=== PATIENT | female | born 1975 | race Caucasian/White ===

== ENCOUNTER 2022-06-20 15:45 | Emergency (ER) | payer OTHER, SELFPAY ==
--- NOTE | ~2022-06-20 | CT_ITS ---
EXAMINATION: CT ABDOMEN AND PELVIS WITH CONTRAST CLINICAL INFORMATION: Epigastric and lower abdominal pain COMPARISON: None TECHNIQUE: Multidetector volumetric images were obtained from the superior aspect of the liver through the pubic symphysis following administration 85 mL of Omnipaque 350 intravenous contrast. Sagittal and coronal reformatted images were obtained on the technologist's workstation. Oral contrast: No This CT examination was performed using dose optimization techniques as appropriate, variously including the following: *Automated exposure control *Adjustment of mA and/or kV according to patient size (this includes techniques or standardized protocols for targeted exams where dose is matched to indication/reason for exam; i.e. extremities or head) *Use of iterative reconstruction technique DLP: 769 mGy-cm FINDINGS: LUNG BASES: The visualized lung bases are unremarkable. LIVER, GALLBLADDER, AND BILIARY TREE: The liver is normal in size, shape, and attenuation. No focal hepatic lesion or biliary ductal dilatation is present. The gallbladder is unremarkable with no evidence of radiopaque gallstones, gallbladder wall thickening, or obvious pericholecystic inflammatory changes. PANCREAS: Unremarkable. SPLEEN: Unremarkable. ADRENAL GLANDS: Unremarkable. KIDNEYS AND URETERS: The kidneys are normal in size, shape, and attenuation. No hydronephrosis, hydroureter, or calculi seen. No perinephric stranding. BLADDER: Unremarkable. GASTROINTESTINAL TRACT: The small and large bowel are unremarkable. The appendix is not seen seen with certainty but there is no evidence of appendicitis. ABDOMINAL WALL: No significant hernia is appreciated. Tiny periumbilical hernia seen containing only fat. LYMPH NODES: No retroperitoneal lymphadenopathy VASCULAR: Unremarkable. PELVIC VISCERA: The uterus and adnexa are unremarkable. OSSEOUS STRUCTURES: Unremarkable. CT/CT abdomen pelvis w IV con IMPRESSION: No significant abnormality. Fleischner guidelines were followed.
[2022-06-20 15:53] VITALS: BP 149/84; PULSE 96; RESP 18; TEMP 36.6; O2SAT 98; BMI 35.9
--- NOTE | 2022-06-20 15:53 | ED_ITS ---
HPI - Abdominal Pain General Chief Complaint: Abdominal Pain <SANDY Tariq Last Filed: 06/20/22 15:59> Stated Complaint: Abdominal pain <SANDY Tariq Last Filed: 06/20/22 15:59> Time Seen by Provider: 06/20/22 21:59 <SANDY Tariq Last Filed: 06/20/22 15:59> Source: patient <SANDY Cook Last Filed: 06/20/22 23:36> Mode of arrival: ambulatory <SANDY Cook Last Filed: 06/20/22 23:36> Limitations: no limitations <SANDY Cook Last Filed: 06/20/22 23:36> History of Present Illness HPI narrative: 46-year-old female presenting with 2 days of nausea and abdominal pain.? Patient states that she was vomiting and having diarrhea a week ago, felt better for a few days, and then started having nausea and epigastric abdominal pain again on Sunday.? Patient denies any sick contacts and household members with similar symptoms.? Patient has not had diarrhea or vomiting since last week.? Patient describes current abdominal pain as burning in her epigastric region and moving up her esophagus, worse after eating. Patient also states that she is having intermittent, dull bilateral lower back pain/flank pain, tells me it is not present at this time.? Denies history of kidney stones.? Denies headache, shortness of breath, chest pain , urinary and bowel incontinence/retention, saddle paresthesias, weakness, changes in gait, UTI symptoms <SANDY Cook Last Filed: 06/20/22 23:36> Related Data Home Medications: Previous Rx's Medication Instructions Recorded aluminum-mag hydroxide-simethicone 5 ml PO 5XD PRN dyspepsia #355 mL 06/20/22 200 mg-200 mg-20 mg/5 mL oral susp (Maalox Advanced) pantoprazole 20 mg tablet,delayed 20 mg PO DAILY #30 tabs 06/20/22 release (Protonix) <SANDY Tariq Last Filed: 06/20/22 15:59> Allergies/Adverse Reactions: Allergies Allergy/AdvReac Type Severity Reaction Status Date / Time cephalexin Allergy Unknown Rash Verified 06/20/22 15:59 <SANDY Tariq - Last Filed: 06/20/22 15:59> Review of Systems Review of Systems Constitutional : No Weight loss, No Fever, No Chills, No Fatigue, No Malaise ENT/Mouth : No sore throat, No Rhinorrhea Eyes: No Eye Pain, No Swelling, No Redness Cardiovascular : No Chest Pain, No SOB, No Dyspnea on Exertion, No Orthopnea, No Edema, No Palpitations Respiratory : No Cough, No Sputum, No Wheezing Gastrointestinal : No Nausea, No Vomiting, No Diarrhea, No Constipation, + abdominal Pain, No Hematochezia, No Melena Genitourinary : No Dysuria, No Urinary Frequency, No Hematuria, Musculoskeletal : No joint pain, No Myalgias, No Joint Swelling, + b/l flank pain Skin : No Skin Lesions, No rash Neuro : No Weakness, No Numbness, No Dizziness, No Headache Psych : No Anxiety/Panic, No Depression All other systems reviewed and are negative? Yes all other systems are reviewed and are negative <SANDY Cook - Last Filed: 06/20/22 23:36> Yes all other systems are reviewed and are negative <SANDY Cook - Last Filed: 06/20/22 23:36> [facility] Past Medical History Attestation statement: The following information was validated with the patient. <SANDY Cook - Last Filed: 06/20/22 23:36> Source: old records reviewed and nursing notes reviewed <SANDY Cook - Last Filed: 06/20/22 23:36> Social History Social History: Social History Advance Directives: No Advance Directives Information Provided: No <SANDY Tariq Last Filed: 06/20/22 15:59> Physical Exam ED Vital Signs: Vital Signs - 24 hr 06/20/22 15:53 06/20/22 22:26 Temperature 97.8 F Pulse Rate 96 69 Respiratory Rate 18 18 Blood Pressure 149/84 H 144/90 H Pulse Oximetry 98 100 Oxygen Delivery Method Room Air Room Air BMI result Body Mass Index 35.9 <SANDY Tariq - Last Filed: 06/20/22 15:59> Vital Signs - 24 hr 06/20/22 15:53 06/20/22 22:26 Temperature 97.8 F Pulse Rate 96 69 Respiratory Rate 18 18 Blood Pressure 149/84 H 144/90 H Pulse Oximetry 98 100 Oxygen Delivery Method Room Air Room Air BMI result Body Mass Index 35.9 vss <SANDY Cook - Last Filed: 06/20/22 23:36> Appearance: Alert.? Oriented X3.? No acute distress.? Head:? Normocephalic, atraumatic, no step-offs or deformities Eyes: Pupils equal, round and reactive to light.? CVS: Normal heart rate and rhythm.? Pulses normal.? Respiratory: No respiratory distress.? Breath sounds normal.? Abdomen: Soft and mild tenderness epigastric region.? Skin: Skin warm and dry.? Normal skin color.? Normal skin turgor.? Extremities: No lower extremity edema.? No calf ttp.? 5/5 strength to bilateral upper and lower extremities Back:? No midline tenderness, no C-spine tenderness, full range of motion, no CVA tenderness bilaterally Neuro: Oriented X 3.? No motor deficit.? No sensory deficit. CN 2-12 intact no saddle paresthesias.? Ambulating with steady gait with normal coordination. <SNADY Cook - Last Filed: 06/20/22 23:36> Course Course Course Narrative: RME--46yo F w/no sig PMHx c/o periumbilical abdominal pain and nausea x1 week. Admits last week had GI bug with N/V/D which has since improved. Abd soft with periumbilical ttp, no CVAT, no rebound or guarding Labs, UA, preg ordered <SANDY Tariq Last Filed: 06/20/22 15:59> Reevaluation(s) Reevaluation #1: Patient's CBC appears to be within normal limits.? Chemistry with no acute electrolyte abnormalities requiring intervention.? Lipase within normal limits.? UA without infection.? Urine negative.? Influenza negative.? CT of the abdomen and pelvis with no acute findings. <SANDY Cook Last Filed: 06/20/22 23:36> Time: 23: <SANDY Cook - Last Filed: 06/20/22 23:36> Reevaluation #2: Patient tells me that she is feeling better at this time, pain-free.? She tells me she is feeling hungry.? Will give a GI cocktail prior to patient's discharge.? Patient is tolerating p.o..? Will give her referral to GI.? Educated patient on diagnosis and treatment plan, answered all question, patient verbalizes understanding.? At this time patient will be discharged home, advised to return with new or worsening symptoms.? Educated on worrisome signs and symptoms and when to return.? At this time I feel comfortable discharge home. <SANDY Cook - Last Filed: 06/20/22 23:36> Time: 23:36 <SANDY Cook - Last Filed: 06/20/22 23:36> Medical Decision Making Medical Decision Making MDM Narrative: 46-year-old female presents with epigastric pain that feels like a burning sensation x2 days.? Previous to this she had nausea, vomiting and diarrhea.? Also reporting bilateral flank discomfort that is intermittent in nature however not present at this time Physical exam with mild epigastric tenderness.? Patient appears comfortable no acute distress.? Vital signs are stable. Likely viral in origin however other differentials include gastritis/GERD.? Unlikely appendicitis, cholecystitis, diverticulitis, pancreatitis or acute abdomen.? Will rule out UTI and cystitis. Plan at this time basic labs, imaging, urine <SANDY Cook - Last Filed: 06/20/22 23:36> Differential Diagnosis Differential Diagnoses: The differential diagnosis associated with the presentation includes <SANDY Cook - Last Filed: 06/20/22 23:36> Likely viral in origin however other differentials include gastritis/GERD.? Unlikely appendicitis, cholecystitis, diverticulitis, pancreatitis or acute abdomen.? Will rule out UTI and cystitis. <SANDY Cook Last Filed: 06/20/22 23:36> Admission/Observation Consideration of admission/observation: Escalation of care including admission/observation considered <SANDY Cook Last Filed: 06/20/22 23:36> Lab Data Result Diagrams: 06/20/22 16:05 06/20/22 16:05 <SANDY Tariq - Last Filed: 06/20/22 15:59> Labs: Lab Results 06/20/22 06/20/22 06/20/22 Range/Units 16:05 16:05 16:36 WBC 7.0 (4.8-10.8) X10*3/uL RBC 4.80 (4.20-5.50) X10*6/uL Hgb 14.4 (12.0-16.0) g/dl Hct 41.6 (37.0-47.0) % MCV 86.7 (80.0-98.0) fL MCH 30.0 (27.0-33.0) pg MCHC 34.6 (31.0-35.0) g/dl RDW 11.9 (11.0-16.0) % Plt Count 313 (160-400) X10*3/uL MPV 8.6 L (9.4-12.3) fL Immature Gran % (Auto) 0.4 (0.0-0.4) % Neut % (Auto) 64.1 (45-73) % Lymph % (Auto) 26.8 (20-40) % Stafford % (Auto) 6.3 (2-11) % Eos % (Auto) 1.7 (0-4) % Baso % (Auto) 0.7 (0-2) % Lymph # (Auto) 1.9 (1.2-4.9) X10*3/uL [place] # (Auto) 0.4 (0.1-1.2) X10*3/uL Eos # (Auto) 0.1 (0.0-0.4) X10*3/uL Baso # (Auto) 0.1 (0.0-0.2) X10*3/uL Abs Immat Gran (auto) 0.03 (0.00-0.03) X10*3/uL Absolute Neuts (auto) 4.5 (2.0-8.3) x10*3/uL Absolute Nucleated RBC 0.000 (0.0-0.012) X10*3/uL Nucleated RBC % (auto) 0.0 (0.0-0.2) /100WBC Sodium 138 (135-145) mmol/L Potassium 3.8 (3.3-5.1) mmol/L Chloride 102 (96-108) mmol/L Carbon Dioxide 26 (22-29) mmol/L Anion Gap 14 (12-20) BUN 10 (9-16) mg/dL Creatinine 0.71 (0.5-1.4) mg/dL Estim Creat Clear Calc 120.1 Estimated GFR > 60 Random Glucose 87 (60-115) mg/dL Calcium 9.4 (8.4-10.2) mg/dL Magnesium 2.0 (1.6-2.6) mg/dL Total Bilirubin 0.8 (0.0-1.0) mg/dL Direct Bilirubin 0.2 (0.0-0.5) mg/dL AST 28 (5-31) U/L ALT 33 H (0-31) U/L Alkaline Phosphatase 90 (39-117) U/L Total Protein 7.6 (6.5-8.0) g/dL Albumin 4.6 (3.5-5.0) g/dL Lipase 28 (8-78) U/L Urine Color Yellow Urine Appearance Clear Urine pH 6.5 (5.0-9.0) Ur Specific [place] 1.010 (1.005-1.025) Urine Protein Negative (Neg-Trace) mg/dL Urine Glucose (UA) Negative (Negative) mg/dL Urine Ketones Trace (Negative) mg/dL Urine Blood Negative (Negative) Urine Nitrite Negative (Negative) Ur Leukocyte Esterase Negative (Negative) Urine Test (NEGATIVE) COVID-19 (QI) (Negative) COVID-19 Clin Com Influenza Type A (NGUYỄN) (Negative) Influenza Type B (NGUYỄN) (Negative) Influenza A & B Note 06/20/22 06/20/22 06/20/22 Range/Units 16:36 22:13 22:13 WBC (4.8-10.8) X10*3/uL RBC (4.20-5.50) X10*6/uL Hgb (12.0-16.0) g/dl Hct (37.0-47.0) % MCV (80.0-98.0) fL MCH (27.0-33.0) pg MCHC (31.0-35.0) g/dl RDW (11.0-16.0) % Plt Count (160-400) X10*3/uL MPV (9.4-12.3) fL Immature Gran % (Auto) (0.0-0.4) % Neut % (Auto) (45-73) % Lymph % (Auto) (20-40) % [place] % (Auto) (2-11) % Eos % (Auto) (0-4) % Baso % (Auto) (0-2) % Lymph # (Auto) (1.2-4.9) X10*3/uL [place] # (Auto) (0.1-1.2) X10*3/uL Eos # (Auto) (0.0-0.4) X10*3/uL Baso # (Auto) (0.0-0.2) X10*3/uL Abs Immat Gran (auto) (0.00-0.03) X10*3/uL Absolute Neuts (auto) (2.0-8.3) x10*3/uL Absolute Nucleated RBC (0.0-0.012) X10*3/uL Nucleated RBC % (auto) (0.0-0.2) /100WBC Sodium (135-145) mmol/L Potassium (3.3-5.1) mmol/L Chloride (96-108) mmol/L Carbon Dioxide (22-29) mmol/L Anion Gap (12-20) BUN (9-16) mg/dL Creatinine (0.5-1.4) mg/dL Estim Creat Clear Calc Estimated GFR Random Glucose (60-115) mg/dL Calcium (8.4-10.2) mg/dL Magnesium (1.6-2.6) mg/dL Total Bilirubin (0.0-1.0) mg/dL Direct Bilirubin (0.0-0.5) mg/dL AST (5-31) U/L ALT (0-31) U/L Alkaline Phosphatase (39-117) U/L Total Protein (6.5-8.0) g/dL Albumin (3.5-5.0) g/dL Lipase (8-78) U/L Urine Color Urine Appearance Urine pH (5.0-9.0) Ur Specific [place] (1.005-1.025) Urine Protein (Neg-Trace) mg/dL Urine Glucose (UA) (Negative) mg/dL Urine Ketones (Negative) mg/dL Urine Blood (Negative) Urine Nitrite (Negative) Ur Leukocyte Esterase (Negative) Urine Test NEGATIVE (NEGATIVE) COVID-19 (QI) Negative (Negative) COVID-19 Clin Com See Note Influenza Type A (NGUYỄN) Negative (Negative) Influenza Type B (NGUYỄN) Negative (Negative) Influenza A & B Note See Note <SANDY Tariq - Last Filed: 06/20/22 15:59> Lab Results 06/20/22 06/20/22 06/20/22 Range/Units 16:05 16:05 16:36 WBC 7.0 (4.8-10.8) X10*3/uL RBC 4.80 (4.20-5.50) X10*6/uL Hgb 14.4 (12.0-16.0) g/dl Hct 41.6 (37.0-47.0) % MCV 86.7 (80.0-98.0) fL MCH 30.0 (27.0-33.0) pg MCHC 34.6 (31.0-35.0) g/dl RDW 11.9 (11.0-16.0) % Plt Count 313 (160-400) X10*3/uL MPV 8.6 L (9.4-12.3) fL Immature Gran % (Auto) 0.4 (0.0-0.4) % Neut % (Auto) 64.1 (45-73) % Lymph % (Auto) 26.8 (20-40) % Stafford % (Auto) 6.3 (2-11) % Eos % (Auto) 1.7 (0-4) % Baso % (Auto) 0.7 (0-2) % Lymph # (Auto) 1.9 (1.2-4.9) X10*3/uL [place] # (Auto) 0.4 (0.1-1.2) X10*3/uL Eos # (Auto) 0.1 (0.0-0.4) X10*3/uL Baso # (Auto) 0.1 (0.0-0.2) X10*3/uL Abs Immat Gran (auto) 0.03 (0.00-0.03) X10*3/uL Absolute Neuts (auto) 4.5 (2.0-8.3) x10*3/uL Absolute Nucleated RBC 0.000 (0.0-0.012) X10*3/uL Nucleated RBC % (auto) 0.0 (0.0-0.2) /100WBC Sodium 138 (135-145) mmol/L Potassium 3.8 (3.3-5.1) mmol/L Chloride 102 (96-108) mmol/L Carbon Dioxide 26 (22-29) mmol/L Anion Gap 14 (12-20) BUN 10 (9-16) mg/dL Creatinine 0.71 (0.5-1.4) mg/dL Estim Creat Clear Calc 120.1 Estimated GFR > 60 Random Glucose 87 (60-115) mg/dL Calcium 9.4 (8.4-10.2) mg/dL Magnesium 2.0 (1.6-2.6) mg/dL Total Bilirubin 0.8 (0.0-1.0) mg/dL Direct Bilirubin 0.2 (0.0-0.5) mg/dL AST 28 (5-31) U/L ALT 33 H (0-31) U/L Alkaline Phosphatase 90 (39-117) U/L Total Protein 7.6 (6.5-8.0) g/dL Albumin 4.6 (3.5-5.0) g/dL Lipase 28 (8-78) U/L Urine Color Yellow Urine Appearance Clear Urine pH 6.5 (5.0-9.0) Ur Specific [place] 1.010 (1.005-1.025) Urine Protein Negative (Neg-Trace) mg/dL Urine Glucose (UA) Negative (Negative) mg/dL Urine Ketones Trace (Negative) mg/dL Urine Blood Negative (Negative) Urine Nitrite Negative (Negative) Ur Leukocyte Esterase Negative (Negative) Urine Test (NEGATIVE) COVID-19 (QI) (Negative) COVID-19 Clin Com Influenza Type A (NGUYỄN) (Negative) Influenza Type B (NGUYỄN) (Negative) Influenza A & B Note 06/20/22 06/20/22 06/20/22 Range/Units 16:36 22:13 22:13 WBC (4.8-10.8) X10*3/uL RBC (4.20-5.50) X10*6/uL Hgb (12.0-16.0) g/dl Hct (37.0-47.0) % MCV (80.0-98.0) fL MCH (27.0-33.0) pg MCHC (31.0-35.0) g/dl RDW (11.0-16.0) % Plt Count (160-400) X10*3/uL MPV (9.4-12.3) fL Immature Gran % (Auto) (0.0-0.4) % Neut % (Auto) (45-73) % Lymph % (Auto) (20-40) % [place] % (Auto) (2-11) % Eos % (Auto) (0-4) % Baso % (Auto) (0-2) % Lymph # (Auto) (1.2-4.9) X10*3/uL [place] # (Auto) (0.1-1.2) X10*3/uL Eos # (Auto) (0.0-0.4) X10*3/uL Baso # (Auto) (0.0-0.2) X10*3/uL Abs Immat Gran (auto) (0.00-0.03) X10*3/uL Absolute Neuts (auto) (2.0-8.3) x10*3/uL Absolute Nucleated RBC (0.0-0.012) X10*3/uL Nucleated RBC % (auto) (0.0-0.2) /100WBC Sodium (135-145) mmol/L Potassium (3.3-5.1) mmol/L Chloride (96-108) mmol/L Carbon Dioxide (22-29) mmol/L Anion Gap (12-20) BUN (9-16) mg/dL Creatinine (0.5-1.4) mg/dL Estim Creat Clear Calc Estimated GFR Random Glucose (60-115) mg/dL Calcium (8.4-10.2) mg/dL Magnesium (1.6-2.6) mg/dL Total Bilirubin (0.0-1.0) mg/dL Direct Bilirubin (0.0-0.5) mg/dL AST (5-31) U/L ALT (0-31) U/L Alkaline Phosphatase (39-117) U/L Total Protein (6.5-8.0) g/dL Albumin (3.5-5.0) g/dL Lipase (8-78) U/L Urine Color Urine Appearance Urine pH (5.0-9.0) Ur Specific [place] (1.005-1.025) Urine Protein (Neg-Trace) mg/dL Urine Glucose (UA) (Negative) mg/dL Urine Ketones (Negative) mg/dL Urine Blood (Negative) Urine Nitrite (Negative) Ur Leukocyte Esterase (Negative) Urine Test NEGATIVE (NEGATIVE) COVID-19 (QI) Negative (Negative) COVID-19 Clin Com See Note Influenza Type A (NGUYỄN) Negative (Negative) Influenza Type B (NGUYỄN) Negative (Negative) Influenza A & B Note See Note <SANDY Cook - Last Filed: 06/20/22 23:36> Core Measures AMI core measures followed: Yes <SANDY Cook - Last Filed: 06/20/22 23:36> Measure exclusions: not indicated <SANDY Cook - Last Filed: 06/20/22 23:36> Medications Administered Discontinued Medications Generic Name Dose Route Start Last Admin Trade Name Freq PRN Reason Stop Dose Admin Iohexol 100 ml 06/20/22 22:34 06/20/22 22:35 Iohexol 350 Mg/Ml 100 Ml Infus..Btl IV 06/20/22 22:35 85 ml ONCE ONE Administration <SANDY Tariq - Last Filed: 06/20/22 15:59> Medications Administered Discontinued Medications Generic Name Dose Route Start Last Admin Trade Name Freq PRN Reason Stop Dose Admin Iohexol 100 ml 06/20/22 22:34 06/20/22 22:35 Iohexol 350 Mg/Ml 100 Ml Infus..Btl IV 06/20/22 22:35 85 ml ONCE ONE Administration <SANDY Cook - Last Filed: 06/20/22 23:36> Critical Care Time Critical Care Time Critical Care Time: No <SANDY Cook - Last Filed: 06/20/22 23:36> Discharge Plan Discharge Clinical Impression: Gastroesophageal reflux disease, Viral illness <SANDY Tariq - Last Filed: 06/20/22 15:59> Patient Disposition: Home, Self-Care <SANDY Tariq - Last Filed: 06/20/22 15:59> Instructions: Diet for Stomach Ulcers and Gastritis (ED), Gastroesophageal Reflux Dis ease (ED), Viral Syndrome (ED) <SANDY Tariq - Last Filed: 06/20/22 15:59> Additional Instructions: Take your medications as prescribed. If you were prescribed antibiotics today, it is important that you take your medication to their entirety, do not skip any doses, do not finish them early. Follow-up with your primary care provider this week. Follow-up with gastroenterology in a week or 2 Return to the emergency department with new or worsening symptoms. Such as fevers, chills, chest pain, shortness of breath, nausea, vomiting, dizziness, headache, vision changes, lethargy In case of emergency call 911 Follow a bland diet, read handouts provided Feel better! CT/CT abdomen pelvis w IV con IMPRESSION: No significant abnormality. ? Fleischner guidelines were followed. <SANDY Tariq - Last Filed: 06/20/22 15:59> Prescriptions: New pantoprazole [Protonix] 20 mg tablet,delayed release (DR/EC) 20 mg PO DAILY Qty: 30 0RF alum-mag hydroxide-simeth [Maalox Advanced] 200-200-20 mg/5 mL suspension 5 ml PO 5XD PRN (Reason: dyspepsia) Qty: 355 0RF Rx Instructions: administer between meals and at bedtime <SANDY Tariq - Last Filed: 06/20/22 15:59> Referrals: [facility] [place]Provider Group] Physician,Unknown J [Primary Care Provider] - 2 days <SANDY Tariq - Last Filed: 06/20/22 15:59> Stand Alone Forms: Work/School Release <SANDY Tariq Last Filed: 06/20/22 15:59>
[2022-06-20 16:10] LABS: MANUAL DIFF FLAG NO
[2022-06-20 16:19] LABS: Basophils Absolute Auto 0.1 X10*3/uL (0.0-0.2); Basophils Percent Auto 0.7 % (0-2); Eosinophils Absolute Auto 0.1 X10*3/uL (0.0-0.4); Eosinophils Percent Auto 1.7 % (0-4); Hematocrit 41.6 % (37.0-47.0); Hemoglobin 14.4 g/dl (12.0-16.0); Imm Gran Abs Auto 0.03 X10*3/uL (0.00-0.03); Imm Gran Pct Auto 0.4 % (0.0-0.4); Lymphocytes Absolute Auto 1.9 X10*3/uL (1.2-4.9); Lymphocytes Percent Auto 26.8 % (20-40); Mean Corpuscular HGB Conc 34.6 g/dl (31.0-35.0); Mean Corpuscular Volume 86.7 fL (80.0-98.0); Mean Platelet Volume 8.6 fL (9.4-12.3); Monocytes Absolute Auto 0.4 X10*3/uL (0.1-1.2); Monocytes Percent Auto 6.3 % (2-11); Neutrophils Absolute Auto 4.5 x10*3/uL (2.0-8.3); Neutrophils Percent Auto 64.1 % (45-73); Platelet Count 313 X10*3/uL (160-400); Red Cell Distribution Width 11.9 % (11.0-16.0)
[2022-06-20 16:45] LABS: Alanine Aminotransferase 33 U/L (0-31); Albumin Level 4.6 g/dL (3.5-5.0); Alkaline Phosphatase 90 U/L (39-117); Anion Gap 14 (12-20); Aspartate Amino Transferase 28 U/L (5-31); Bilirubin Direct 0.2 mg/dL (0.0-0.5); Bilirubin Total 0.8 mg/dL (0.0-1.0); Blood Urea Nitrogen 10 mg/dL (9-16); Calcium 9.4 mg/dL (8.4-10.2); Carbon Dioxide 26 mmol/L (22-29); Chloride 102 mmol/L (96-108); Creatinine Clr Calc Pharmacy 120.1; Estimated Glomerular Filt Rate > 60; Glucose Random 87 mg/dL (60-115); Lipase 28 U/L (8-78); Potassium 3.8 mmol/L (3.3-5.1); Sodium 138 mmol/L (135-145); Total Protein 7.6 g/dL (6.5-8.0)
[2022-06-20 16:49] LABS: Appearance Urine Clear; Color Urine Yellow; Glucose Urine UA Negative (Negative); Leukocyte Esterase Urine Negative (Negative); Nitrite Urine Negative (Negative); PH 6.5 (5.0-9.0); Urine Blood Negative (Negative); Urine Ketones Trace mg/dL (Negative); Urine Protein Negative (Neg-Trace)
[2022-06-20 16:50] LABS: UPreg QC Valid YES; Urine Pregnancy NEGATIVE (NEGATIVE)
--- NOTE | 2022-06-20 22:06 | ED.GENADULT ---
HPI - General Adult General Chief complaint: Abdominal Pain Stated complaint: Abdominal pain Time Seen by Provider: 06/20/22 21:59 Source: patient Mode of arrival: ambulatory Limitations: no limitations History of Present Illness HPI narrative: 46-year-old female presenting with 2 days of nausea and abdominal pain. Patient states that she was vomiting and having diarrhea a week ago, felt better for a few days, and then started having nausea and epigastric abdominal pain again on Sunday. Patient denies any sick contacts and household members with similar symptoms. Patient has not had diarrhea or vomiting since last week. Patient describes current abdominal pain as burning in her epigastric region and moving up her esophagus, worse after eating. Patient also states that she is having intermittent, dull bilateral lower back pain/flank pain, tells me it is not present at this time. Denies history of kidney stones. Denies headache, shortness of breath, chest pain , urinary and bowel incontinence/retention, saddle paresthesias, weakness, changes in gait, UTI symptoms Related Data Previous Rx's Medication Instructions Recorded aluminum-mag hydroxide-simethicone 5 ml PO 5XD PRN dyspepsia #355 mL 06/20/22 200 mg-200 mg-20 mg/5 mL oral susp (Maalox Advanced) pantoprazole 20 mg tablet,delayed 20 mg PO DAILY #30 tabs 06/20/22 release (Protonix) Allergies Allergy/AdvReac Type Severity Reaction Status Date / Time cephalexin Allergy Unknown Rash Verified 06/20/22 15:59 Review of Systems Review of Systems: Constitutional : No Weight loss, No Fever, No Chills, No Fatigue, No Malaise ENT/Mouth : No sore throat, No Rhinorrhea Eyes: No Eye Pain, No Swelling, No Redness Cardiovascular : No Chest Pain, No SOB, No Dyspnea on Exertion, No Orthopnea, No Edema, No Palpitations Respiratory : No Cough, No Sputum, No Wheezing Gastrointestinal : No Nausea, No Vomiting, No Diarrhea, No Constipation, + abdominal Pain, No Hematochezia, No Melena Genitourinary : No Dysuria, No Urinary Frequency, No Hematuria, Musculoskeletal : No joint pain, No Myalgias, No Joint Swelling, + b/l flank pain Skin : No Skin Lesions, No rash Neuro : No Weakness, No Numbness, No Dizziness, No Headache Psych : No Anxiety/Panic, No Depression All other systems reviewed and are negative Yes all other systems are reviewed and are negative [facility] Past Medical History Attestation statement: The following information was validated with the patient. Source: old records reviewed and nursing notes reviewed Social History Social History Advance Directives: No Advance Directives Information Provided: No Physical Exam ED Vital Signs: Vital Signs - 24 hr 06/20/22 15:53 06/20/22 22:26 Temperature 97.8 F Pulse Rate 96 69 Respiratory Rate 18 18 Blood Pressure 149/84 H 144/90 H Pulse Oximetry 98 100 Oxygen Delivery Method Room Air Room Air BMI result Body Mass Index 35.9 vss Appearance: Alert.? Oriented X3.? No acute distress.? Head: Normocephalic, atraumatic, no step-offs or deformities Eyes: Pupils equal, round and reactive to light.? CVS: Normal heart rate and rhythm.? Pulses normal.? Respiratory: No respiratory distress.? Breath sounds normal.? Abdomen: Soft and mild tenderness epigastric region.? Skin: Skin warm and dry.? Normal skin color.? Normal skin turgor.? Extremities: No lower extremity edema.? No calf ttp. 5/5 strength to bilateral upper and lower extremities Back: No midline tenderness, no C-spine tenderness, full range of motion, no CVA tenderness bilaterally Neuro: Oriented X 3.? No motor deficit.? No sensory deficit. CN 2-12 intact no saddle paresthesias. Ambulating with steady gait with normal coordination. Course Reevaluation(s) Reevaluation #1: Patient's CBC appears to be within normal limits. Chemistry with no acute electrolyte abnormalities requiring intervention. Lipase within normal limits. UA without infection. Urine negative. Influenza negative. CT of the abdomen and pelvis with no acute findings. Time: 23:27 Reevaluation #2: Patient tells me that she is feeling better at this time, pain-free. She tells me she is feeling hungry. Will give a GI cocktail prior to patient's discharge. Patient is tolerating p.o.. Will give her referral to GI. Educated patient on diagnosis and treatment plan, answered all question, patient verbalizes understanding. At this time patient will be discharged home, advised to return with new or worsening symptoms. Educated on worrisome signs and symptoms and when to return. At this time I feel comfortable discharge home. Time: 23:28 Medications Administered Discontinued Medications Generic Name Dose Route Start Last Admin Trade Name Xi PRN Reason Stop Dose Admin Iohexol 100 ml 06/20/22 22:34 06/20/22 22:35 Iohexol 350 Mg/Ml 100 Ml Infus..Btl IV 06/20/22 22:35 85 ml ONCE ONE Administration Medical Decision Making Medical Decision Making [facility] Narrative: 46-year-old female presents with epigastric pain that feels like a burning sensation x2 days. Previous to this she had nausea, vomiting and diarrhea. Also reporting bilateral flank discomfort that is intermittent in nature however not present at this time Physical exam with mild epigastric tenderness. Patient appears comfortable no acute distress. Vital signs are stable. Likely viral in origin however other differentials include gastritis/GERD. Unlikely appendicitis, cholecystitis, diverticulitis, pancreatitis or acute abdomen. Will rule out UTI and cystitis. Plan at this time basic labs, imaging, urine Differential Diagnosis Differential Diagnoses: The differential diagnosis associated with the presentation includes Likely viral in origin however other differentials include gastritis/GERD. Unlikely appendicitis, cholecystitis, diverticulitis, pancreatitis or acute abdomen. Will rule out UTI and cystitis. Admission/Observation Consideration of admission/observation: Escalation of care including admission/observation considered Unlikely Lab Data [facility] Lab Attestation statement: I reviewed the patient's lab results. 06/20/22 16:05 06/20/22 16:05 Labs: Lab Results 06/20/22 06/20/22 06/20/22 Range/Units 16:05 16:05 16:36 WBC 7.0 (4.8-10.8) X10*3/uL RBC 4.80 (4.20-5.50) X10*6/uL Hgb 14.4 (12.0-16.0) g/dl Hct 41.6 (37.0-47.0) % MCV 86.7 (80.0-98.0) fL MCH 30.0 (27.0-33.0) pg MCHC 34.6 (31.0-35.0) g/dl RDW 11.9 (11.0-16.0) % Plt Count 313 (160-400) X10*3/uL MPV 8.6 L (9.4-12.3) fL Immature Gran % (Auto) 0.4 (0.0-0.4) % Neut % (Auto) 64.1 (45-73) % Lymph % (Auto) 26.8 (20-40) % [place] % (Auto) 6.3 (2-11) % Eos % (Auto) 1.7 (0-4) % Baso % (Auto) 0.7 (0-2) % Lymph # (Auto) 1.9 (1.2-4.9) X10*3/uL [place] # (Auto) 0.4 (0.1-1.2) X10*3/uL Eos # (Auto) 0.1 (0.0-0.4) X10*3/uL Baso # (Auto) 0.1 (0.0-0.2) X10*3/uL Abs Immat Gran (auto) 0.03 (0.00-0.03) X10*3/uL Absolute Neuts (auto) 4.5 (2.0-8.3) x10*3/uL Absolute Nucleated RBC 0.000 (0.0-0.012) X10*3/uL Nucleated RBC % (auto) 0.0 (0.0-0.2) /100WBC Sodium 138 (135-145) mmol/L Potassium 3.8 (3.3-5.1) mmol/L Chloride 102 (96-108) mmol/L Carbon Dioxide 26 (22-29) mmol/L Anion Gap 14 (12-20) BUN 10 (9-16) mg/dL Creatinine 0.71 (0.5-1.4) mg/dL Estim Creat Clear Calc 120.1 Estimated GFR > 60 Random Glucose 87 (60-115) mg/dL Calcium 9.4 (8.4-10.2) mg/dL Magnesium 2.0 (1.6-2.6) mg/dL Total Bilirubin 0.8 (0.0-1.0) mg/dL Direct Bilirubin 0.2 (0.0-0.5) mg/dL AST 28 (5-31) U/L ALT 33 H (0-31) U/L Alkaline Phosphatase 90 (39-117) U/L Total Protein 7.6 (6.5-8.0) g/dL Albumin 4.6 (3.5-5.0) g/dL Lipase 28 (8-78) U/L Urine Color Yellow Urine Appearance Clear Urine pH 6.5 (5.0-9.0) Ur Specific [place] 1.010 (1.005-1.025) Urine Protein Negative (Neg-Trace) mg/dL Urine Glucose (UA) Negative (Negative) mg/dL Urine Ketones Trace (Negative) mg/dL Urine Blood Negative (Negative) Urine Nitrite Negative (Negative) Ur Leukocyte Esterase Negative (Negative) Urine Test (NEGATIVE) Influenza Type A (NGUYỄN) (Negative) Influenza Type B (NGUYỄN) (Negative) Influenza A & B Note 06/20/22 06/20/22 Range/Units 16:36 22:13 WBC (4.8-10.8) X10*3/uL RBC (4.20-5.50) X10*6/uL Hgb (12.0-16.0) g/dl Hct (37.0-47.0) % MCV (80.0-98.0) fL MCH (27.0-33.0) pg MCHC (31.0-35.0) g/dl RDW (11.0-16.0) % Plt Count (160-400) X10*3/uL MPV (9.4-12.3) fL Immature Gran % (Auto) (0.0-0.4) % Neut % (Auto) (45-73) % Lymph % (Auto) (20-40) % [place] % (Auto) (2-11) % Eos % (Auto) (0-4) % Baso % (Auto) (0-2) % Lymph # (Auto) (1.2-4.9) X10*3/uL [place] # (Auto) (0.1-1.2) X10*3/uL Eos # (Auto) (0.0-0.4) X10*3/uL Baso # (Auto) (0.0-0.2) X10*3/uL Abs Immat Gran (auto) (0.00-0.03) X10*3/uL Absolute Neuts (auto) (2.0-8.3) x10*3/uL Absolute Nucleated RBC (0.0-0.012) X10*3/uL Nucleated RBC % (auto) (0.0-0.2) /100WBC Sodium (135-145) mmol/L Potassium (3.3-5.1) mmol/L Chloride (96-108) mmol/L Carbon Dioxide (22-29) mmol/L Anion Gap (12-20) BUN (9-16) mg/dL Creatinine (0.5-1.4) mg/dL Estim Creat Clear Calc Estimated GFR Random Glucose (60-115) mg/dL Calcium (8.4-10.2) mg/dL Magnesium (1.6-2.6) mg/dL Total Bilirubin (0.0-1.0) mg/dL Direct Bilirubin (0.0-0.5) mg/dL AST (5-31) U/L ALT (0-31) U/L Alkaline Phosphatase (39-117) U/L Total Protein (6.5-8.0) g/dL Albumin (3.5-5.0) g/dL Lipase (8-78) U/L Urine Color Urine Appearance Urine pH (5.0-9.0) Ur Specific [place] (1.005-1.025) Urine Protein (Neg-Trace) mg/dL Urine Glucose (UA) (Negative) mg/dL Urine Ketones (Negative) mg/dL Urine Blood (Negative) Urine Nitrite (Negative) Ur Leukocyte Esterase (Negative) Urine Test NEGATIVE (NEGATIVE) Influenza Type A (NGUYỄN) Negative (Negative) Influenza Type B (NGUYỄN) Negative (Negative) Influenza A & B Note See Note Independent Interpretation I performed an independent interpretation of an: CT Scan (CT/CT abdomen pelvis w IV con IMPRESSION: No significant abnormality. Fleischner guidelines were followed.) Radiology Impression Discussion of test interpretation with radiology: I have reviewed the radiologist's reading. Core Measures AMI core measures followed: Yes Measure exclusions: not indicated Critical Care Time Critical Care Time Critical Care Time: No Discharge Plan Discharge Clinical Impression: Gastroesophageal reflux disease, Viral illness Patient Disposition: Home, Self-Care Instructions: Diet for Stomach Ulcers and Gastritis (ED), Gastroesophageal Reflux Disease (ED), Viral Syndrome (ED) Additional Instructions: Take your medications as prescribed. If you were prescribed antibiotics today, it is important that you take your medication to their entirety, do not skip any doses, do not finish them early. Follow-up with your primary care provider this week. Follow-up with gastroenterology in a week or 2 Return to the emergency department with new or worsening symptoms. Such as fevers, chills, chest pain, shortness of breath, nausea, vomiting, dizziness, headache, vision changes, lethargy In case of emergency call 911 Follow a bland diet, read handouts provided Feel better! CT/CT abdomen pelvis w IV con IMPRESSION: No significant abnormality. ? Fleischner guidelines were followed. Prescriptions: New pantoprazole [Protonix] 20 mg tablet,delayed release (DR/EC) 20 mg PO DAILY Qty: 30 0RF alum-mag hydroxide-simeth [Maalox Advanced] 200-200-20 mg/5 mL suspension 5 ml PO 5XD PRN (Reason: dyspepsia) Qty: 355 0RF Rx Instructions: administer between meals and at bedtime Referrals: [facility] [Provider Group] Physician,Unknown J [Primary Care Provider] - 2 days Stand Alone Forms: Work/School Release
[2022-06-20 22:26] VITALS: BP 144/90; PULSE 69; RESP 18; O2SAT 100
[2022-06-20] MEDS: iohexoL 350 MG/ML 100 ML INFUS..BTL IV (22:35)
[2022-06-20 23:04] LABS: IDNOW Serial# BCCEAD1C; Influenza A Negative (Negative); Influenza B2 Negative (Negative)
[2022-06-20 23:27] LABS: IDNOW Serial# 6674DD1D
[2022-06-20 23:28] LABS: COVID-19 Test Negative (Negative)
[2022-06-20] MEDS: Magnesium Hydrox/Alum Hydrox 30 ML ORAL.SUSP PO (23:41)
[2022-06-20] MEDS: PHENobarb/Hyoscy/Atropine/Scop 10 ML ELIXIR PO (23:42)
== END 2022-06-20 23:55 | disposition home or self-care (01) ==
PROVIDERS: Physician Assistant; Emergency Provider Internal Medicine
DX: B34.9 Viral infection, unspecified (principal); K21.9 Gastro-esophageal reflux disease without esophagitis; Z20.822 Contact with and (suspected) exposure to COVID-19; R10.9 Unspecified abdominal pain
CPT/HCPCS: 36415; 74177; 80048; 80076; 81003; 81025; 83690; 83735; 85025; 87502; 87635; 99283; 99284; Q9967

== ENCOUNTER → 2022-07-05 11:34 | Outpatient (BNVA) | payer OTHER, SELFPAY | PROVIDERS: Visit Provider Physician Assistant | DX: Z09 Encounter for follow-up examination after completed treatment for conditions other than malignant neoplasm (principal) | CPT/HCPCS: 99202 ==

== ENCOUNTER 2022-07-06 12:13 | Outpatient (REF) | payer OTHER, SELFPAY | END 2022-07-06 12:14 | disposition home or self-care (01) | LOC: HO.WFDLNP 12:13 | PROVIDERS: Visit Provider Physician Assistant | DX: A04.8 Other specified bacterial intestinal infections (principal) | CPT/HCPCS: 87338 ==

== ENCOUNTER → 2022-08-01 09:34 | Outpatient (BNVA) | payer OTHER, SELFPAY | PROVIDERS: Visit Provider Physician Assistant | DX: K21.9 Gastro-esophageal reflux disease without esophagitis (principal) | CPT/HCPCS: 99212 ==

== ENCOUNTER 2023-08-16 02:05 | Emergency (ER) | payer OTHER, SELFPAY ==
[2023-08-16 02:15] VITALS: BP 138/89; BP 161/86; PULSE 87; PULSE 92; RESP 20; TEMP 36.6; O2SAT 98; BMI 36.3
[2023-08-16] MEDS: Famotidine/PF 20 MG/2 ML VIAL IVPUSH (02:28)
[2023-08-16] MEDS: methylPREDNISolone Sod Succ 125 MG/2 ML VIAL IVPUSH (02:28)
[2023-08-16] MEDS: 0.9 % Sodium Chloride 1,000 ML 999 ML IV (02:29)
--- NOTE | 2023-08-16 02:44 | PC.NURSE ---
Pt A&Ox3, reports starting Naltrexone medication at 8pm, then noted sore throat, hard to swallow and hives all over. Pt also reports eating a macadamia cookie around 4pm. Pt took 50 mg of Benadryl at home. Pt speaking in full sentences, SpO2 96%,RR 18. IV line placed.
--- NOTE | 2023-08-16 03:33 | ED_ITS ---
HPI - Allergic Reaction General Chief complaint: Allergic Reaction Stated complaint: allergic reaction Time Seen by Provider: 08/16/23 03:13 Source: patient and EMS Mode of arrival: EMS Limitations: no limitations History of Present Illness HPI narrative: 48-year-old female came in after she developed hives and allergic reaction 1 hour after taking naltrexone medication that was prescribed to her for losing weight, patient started to have hives and itching diffusely, felt throat is tightening, but no wheezing or difficulty breathing was reported by the patient patient took 50 mg of Benadryl. On arrival patient was given fluids, Solu- Medrol, Pepcid. Patient started to feel better after was given the above medication. Related Data Home Medications ?Medication ?Instructions ?Recorded ?Confirmed levothyroxine 50 mcg tablet 50 mcg PO DAILY 07/05/22 08/01/22 phentermine 37.5 mg tablet 37.5 mg PO QAM 07/05/22 08/01/22 Previous Rx's ?Medication ?Instructions ?Recorded omeprazole 20 mg capsule,delayed 20 mg PO DAILY #30 caps 07/05/22 release Allergies Allergy/AdvReac Type Severity Reaction Status Date / Time cephalexin Allergy Unknown Rash Verified 08/16/23 02:18 Review of Systems Review of Systems: All other systems are reviewed and are negative Constitutional: Reports as per HPI and Reports no additional constitutional complaints Eyes: Reports as per HPI and Reports no additional eye complaints Reports system reviewed and no additional complaints, except as documented Cardiovascular: Reports as per HPI and Reports no additional cardiovascular complaints Respiratory: Reports as per HPI and Reports no additional respiratory complaints Gastrointestinal: Reports as per HPI and Reports no additional gastrointestinal complaints Genitourinary: Reports no additional female genitourinary complaints Musculoskeletal: Reports no additional musculoskeletal complaints Skin/Breast: Reports system reviewed and no additional complaints, except as docu Psychiatric: Reports no additional psychiatric complaints Endocrine: Reports no additional endocrine complaints Hematologic/Lymphatic: Reports no additional hematologic/lymphatic complaints Allergic/Immunologic: Reports no additional allergic/immunologic complaints Reports system reviewed and no additional complaints, except as documented and Reports Abnormal speech present [facility] Social History Social History Household Members: Family Alcohol intake: current Alcohol intake frequency: a few times a week Patient Tobacco Use Status: Former Tobacco user Tobacco use type: Cigarette Smoked in Last 30 Days: No Use of substances other than those prescribed or required for medical reasons: No Advance Directives: No Advance Directives Information Provided: Yes Patient : No 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 Blood pressure elevated. Heart rate normal. Respiratory rate normal. Temperature normal. Oxygen saturation normal. Appearance: Alert. Oriented X3. No acute distress. Head: Normal external exam. Normocephalic. Atraumatic. No Gar signs noted. No raccoon eyes noted Eyes: PERRLA. EOMI. Conjunctiva and sclera normal. Eyelids normal. ENT: TM's Normal. Pharynx normal. Uvula midline. Moist mucous membranes. No trismus noted. No drooling noted. No muffled voice noted. Patent airway, no stridor. Neck: Normal inspection. Neck supple. FROM. No adenopathy. Thyroid Normal. No meningeal signs. No neck mass noted. CVS: Normal heart rate and rhythm. Heart sound normal. No murmurs noted. Pulses normal throughout. Respiratory: No respiratory distress. Painless inspiration. Breath sounds normal. No wheezes/rales/rhonchi noted. Chest nontender. No accessory muscle usage noted or decreased air movement noted. Abdomen: Soft and nontender. Bowel sounds normal in all 4 quadrants. No distention noted. No organomegaly noted. No visible injury noted. Back: No CVA tenderness. Full range of motion noted. Skin: Skin warm and dry. Normal skin color. Normal skin turgor. No rashes/lesions/lacerations noted. Extremities: No lower extremity edema. Extremities exhibit normal range of motion. Extremities nontender. Neuro: Oriented X 3. Cranial nerve exam: II-XII are grossly intact No motor deficit. No sensory deficit. Reflexes normal. Course Reevaluation(s) Reevaluation #1: Allergic reaction to new medication to lose weight (naltrexone) no upper respiratory swelling or obstruction, hives and rash are getting better, patient feels better overall, patient was instructed to stop the medicine at consult with her primary doctor. Time: 07:00 Medications Administered Discontinued Medications Generic Name Dose Route Start Last Admin Trade Name Xi PRN Reason Stop Dose Admin Famotidine 20 mg 08/16/23 02:22 08/16/23 02:28 Famotidine/Pf 20 Mg/2 Ml Vial IVPUSH 08/16/23 02:23 20 mg ONCE ONE Administration Sodium Chloride 1,000 mls @ 999 mls/hr 08/16/23 02:30 08/16/23 02:29 Ns IV 08/16/23 03:30 999 mls/hr .Q1H1M TABITHA Administration Methylprednisolone Sodium Succinate 125 mg 08/16/23 02:22 08/16/23 02:28 Methylprednisolone Sod Succ 125 Mg/2 Ml Vial IVPUSH 08/16/23 02:23 125 mg ONCE ONE Administration Medical Decision Making Differential Diagnosis Differential Diagnoses: The differential diagnosis associated with the presentation includes (Anaphylaxis, allergic reaction, hives.) Admission/Observation Consideration of admission/observation: Escalation of care including admission/observation considered Discharge Plan Discharge Clinical Impression: Allergic reaction Patient Disposition: Home, Self-Care Instructions: General Allergic Reaction (ED) Additional Instructions: Stop taking the new medication and consult with your primary doctor. Prescriptions: No Action levothyroxine 50 mcg tablet 50 mcg PO DAILY phentermine 37.5 mg tablet 37.5 mg PO QAM omeprazole 20 mg capsule,delayed release(DR/EC) 20 mg PO DAILY Qty: 30 5RF Print Language: Armenian
[2023-08-16 06:15] VITALS: BP 132/74; PULSE 86; RESP 19; TEMP 36.9; O2SAT 96
[2023-08-16 06:52] VITALS: BP 132/74; PULSE 86; RESP 16; TEMP 36.9
== END 2023-08-16 06:54 | disposition home or self-care (01) ==
PROVIDERS: Emergency Provider Emergency Medicine
DX: L50.0 Allergic urticaria (principal); T50.7X5A Adverse effect of analeptics and opioid receptor antagonists, initial encounter; Y92.9 Unspecified place or not applicable
CPT/HCPCS: 96361; 96374; 96375; 99284; J2919

== ENCOUNTER 2024-02-08 10:14 | Outpatient (AMB) | payer OTHER, SELFPAY ==
[2024-02-08 10:15] VITALS: BP 128/92; PULSE 85; O2SAT 97; BMI 36.6
--- NOTE | 2024-02-08 10:15 | HO.NEPHOV ---
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 Serum creatinine was normal in 2022 About a year ago she had a renal ultrasonogram which was reported as hydronephrosis. She was referred to a tool room supervisor but her appointment was canceled by the tool room supervisor. She was seen by urology. Cystoscopy was done which was unremarkable and therefore she was discharged. It was unclear if the follow up ultrasound showed resolution of the hydronephrosis. History of hypertension she is on amlodipine 5 mg. Sometimes office readings have been elevated. The accuracy of her home blood pressure monitor seems questionable She has been on Wegovy There has been minimal weight loss of 8-10 lb History of fatigue. History of chronic constipation. This started even before starting amlodipine. However after starting Wegovy she has had episodes of diarrhea on and off. She has had colonoscopy few years ago which was unremarkable. History of hypothyroidism. She is on levothyroxine 50 mcg a recent TSH was 2.6. She is on a regular diet No history of alcohol abuse although she drinks up to 6 drinks during weekends. 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 Vital Signs: Last Vital Signs Pulse 85 02/08/24 10:15 BP 128/92 H 02/08/24 10:15 Pulse Ox 97 02/08/24 10:15 Oxygen Delivery Method Room Air 02/08/24 10:15 BMI result Body Mass Index 36.6 Const General: comfortable; No acute distress Orientation/consciousness: patient oriented x3 Eyes General: appearance normal, both eyes and all related structures Visual Hinton: normal visual hinton by confrontation Neck Neck: Yes supple and Yes no JVD Resp Effort & Inspection: normal respiratory effort and respiratory effort not decreased Auscultation: rhonchi Cardio Palpation: no palpable S3 and no palpable S4 Heart sounds: no rubs GI Inspection: Yes normal to inspection Palpation (GI): Soft to palpation Percussion: Yes normal to percussion Auscultation: normal bowel sounds General: Yes no CVA tenderness Back/Spine/Pelvis Back: no CVA tenderness Skin General skin exam: no petechiae and no purpura Neuro General: patient oriented x3 and no focal motor deficits Extrem General: No clubbing and No edema Results Reviewed Nephrology Results: Hgb 14.4 g/dl (12.0-16.0) 06/20/22 WBC 7.0 X10*3/uL (4.8-10.8) 06/20/22 Plt Count 313 X10*3/uL (160-400) 06/20/22 Sodium 138 mmol/L (135-145) 06/20/22 Potassium 3.8 mmol/L (3.3-5.1) 06/20/22 Chloride 102 mmol/L (96-108) 06/20/22 Carbon Dioxide 26 mmol/L (22-29) 06/20/22 BUN 10 mg/dL (9-16) 06/20/22 Creatinine 0.71 mg/dL (0.5-1.4) 06/20/22 Calcium 9.4 mg/dL (8.4-10.2) 06/20/22 Urine Protein Negative mg/dL (Neg-Trace) 06/20/22 Assessment & Plan Assessment & Plan (1) HTN (hypertension): Code(s): I10 - Essential (primary) hypertension Category: Medical Plan: Blood pressure needs to be better controlled. She will benefit from weight loss She should stay on low-sodium diet. Given the history of elevation of blood pressure in the office setting I will obtain a 24 hour ambulatory blood pressure monitoring. (2) Elevated serum creatinine: Code(s): R79.89 - Other specified abnormal findings of blood chemistry Category: Medical Plan: The serum creatinine was normal back in 2022. The urine creatinine excretion appears to be normal based on recent studies. Nevertheless given the history of hydronephrosis in the past I will obtain a renal ultrasonogram for follow-up. Check renal panel again. Plan Simin has significant fatigue, constipation and difficulty with weight loss. I suspect this may all be due to hypothyroidism. I have increase levothyroxine from 50 mcg up to 62.5. . Orders: Orders Complete Blood Count Auto Diff Today N13.30 - Unspecified hydronephrosis, R79.89 - Other specified abnormal findings of blood chemistry Comprehensive Met. Panel Today N13.30 - Unspecified hydronephrosis, R79.89 - Other specified abnormal findings of blood chemistry US renal BI Today I10 - Essential (primary) hypertension, N13.30 - Unspecified hydronephrosis, R79.89 - Other specified abnormal findings of blood chemistry AMB 24 HR B/P Monitor PLACEMENT Today I10 - Essential (primary) hypertension UA and rflx microscopic Today N13.30 - Unspecified hydronephrosis, R79.89 - Other specified abnormal findings of blood chemistry Total Protein Urine Random Today N13.30 - Unspecified hydronephrosis, R79.89 - Other specified abnormal findings of blood chemistry Creatinine Urine Today N13.30 - Unspecified hydronephrosis, R79.89 - Other specified abnormal findings of blood chemistry Medications: New levothyroxine 62.5 mcg PO DAILY 30 caps 1RF Coding Level of Care Code New Pt Level 4 (73235) Diagnoses HTN (hypertension) I10 Elevated serum creatinine R79.89
== END 2024-02-08 11:00 | disposition home or self-care (01) ==
PROVIDERS: PCP Family Medicine; Visit Provider Internal Medicine Hypertension Specialist
DX: I10 Essential (primary) hypertension (principal); R79.89 Other specified abnormal findings of blood chemistry
CPT/HCPCS: 99204

== ENCOUNTER → 2024-02-08 10:14 | Outpatient (BNVA) | payer OTHER, SELFPAY | PROVIDERS: PCP Family Medicine; Visit Provider Internal Medicine Hypertension Specialist | DX: I10 Essential (primary) hypertension (principal); E03.9 Hypothyroidism, unspecified; R79.89 Other specified abnormal findings of blood chemistry; N13.30 Unspecified hydronephrosis; Z79.899 Other long term (current) drug therapy | CPT/HCPCS: 99202 ==

== ENCOUNTER 2024-02-08 11:03 | Outpatient (REF) | payer OTHER, SELFPAY ==
[2024-02-08 13:17] LABS: Appearance Urine Hazy; Color Urine Yellow; Glucose Urine UA Negative (Negative); Leukocyte Esterase Urine Negative (Negative); Nitrite Urine Negative (Negative); Specific Gravity - Urine 1.025 (1.005-1.025); UMIC TRIGGER UA YES; Urine Blood Large (3+) (Negative); Urine Ketones Negative (Negative); Urine Protein 30 (1+) mg/dL (Neg-Trace)
[2024-02-08 13:22] LABS: MANUAL DIFF FLAG NO
[2024-02-08 13:36] LABS: Bacteria Urine 2+ (None Seen); Hyaline Casts Urine 0-2 /LPF (0-2); RBC Urine >20 /HPF (0-2)
[2024-02-08 13:40] LABS: Basophils Absolute Auto 0.1 X10*3/uL (0.0-0.2); Basophils Percent Auto 0.9 % (0-2); Eosinophils Absolute Auto 0.1 X10*3/uL (0.0-0.4); Eosinophils Percent Auto 1.3 % (0-4); Hematocrit 41.1 % (37.0-47.0); Hemoglobin 14.2 g/dl (12.0-16.0); Imm Gran Abs Auto 0.02 X10*3/uL (0.00-0.03); Imm Gran Pct Auto 0.3 % (0.0-0.4); Lymphocytes Absolute Auto 1.7 X10*3/uL (1.2-4.9); Lymphocytes Percent Auto 21.9 % (20-40); Mean Corpuscular HGB Conc 34.5 g/dl (31.0-35.0); Mean Corpuscular Hemoglobin 30.7 pg (27.0-33.0); Mean Platelet Volume 9.2 fL (9.4-12.3); Monocytes Absolute Auto 0.5 X10*3/uL (0.1-1.2); Monocytes Percent Auto 6.9 % (2-11); Neutrophils Absolute Auto 5.4 x10*3/uL (2.0-8.3); Neutrophils Percent Auto 68.7 % (45-73); Platelet Count 289 X10*3/uL (160-400); Red Blood Count 4.62 X10*6/uL (4.20-5.50); Red Cell Distribution Width 11.9 % (11.0-16.0); White Blood Count 7.9 X10*3/uL (4.8-10.8)
[2024-02-08 14:12] LABS: Alanine Aminotransferase 19 U/L (0-31); Albumin Level 4.5 g/dL (3.5-5.0); Alkaline Phosphatase 69 U/L (39-117); Anion Gap 9 (12-20); Aspartate Amino Transferase 15 U/L (5-31); Bilirubin Total 0.5 mg/dL (0.0-1.0); Blood Urea Nitrogen 10 mg/dL (9-16); Carbon Dioxide 26 mmol/L (22-29); Chloride 106 mmol/L (96-108); Estimated Glomerular Filt Rate > 60; Glucose Random 98 mg/dL (60-115); Potassium 3.7 mmol/L (3.3-5.1); Sodium 137 mmol/L (135-145); Total Protein 7.2 g/dL (6.5-8.0)
[2024-02-08 14:17] LABS: Creatinine Urine 136.48 mg/dL; Total Protein Urine Random 18 mg/dL (<12)
== END 2024-02-08 11:04 | disposition home or self-care (01) ==
LOC: HO.10HDL 11:03
PROVIDERS: Visit Provider Internal Medicine Hypertension Specialist
DX: R79.89 Other specified abnormal findings of blood chemistry (principal); N13.30 Unspecified hydronephrosis
CPT/HCPCS: 36415; 80053; 81001; 82570; 84156; 85025

== ENCOUNTER 2024-02-13 14:26 | Outpatient (REF) | payer OTHER, SELFPAY ==
--- NOTE | ~2024-02-13 | US_ITS ---
EXAMINATION: US RETROPERITONEAL LIMITED (RENAL ONLY) CLINICAL INFORMATION: Essential (primary) hypertension. COMPARISON: CT abdomen/pelvis 06/20/2022 TECHNIQUE: Ultrasound along with color Doppler imaging and spectral analysis was performed of the kidneys. FINDINGS: RIGHT KIDNEY: 11.5 x 5.2 x 5.6 cm (SAG x AP x TRV). The kidney is normal in size, contour, and echogenicity. Renal cortical thickness is normal. There is a nonobstructing lower pole 0.2 x 0.1 cm calculus. No focal parenchymal lesions or hydronephrosis. LEFT KIDNEY: 13.8 x 4.9 x 4.3 cm (SAG x AP x TRV). The kidney is normal in size, contour, and echogenicity. Renal cortical thickness is normal. There is a nonobstructing lower pole 0.3 x 0.2 x 0.3 cm calculus. No focal parenchymal lesions or hydronephrosis. US/US renal BI IMPRESSION: There are bilateral nonobstructing renal calculi. No hydronephrosis. Electronically signed by: Silvia Tobar DO 02/14/2024 10:30 AM EDT
== END 2024-02-13 14:27 | disposition home or self-care (01) ==
LOC: HO.US 14:26
PROVIDERS: PCP Family Medicine; Visit Provider Internal Medicine Hypertension Specialist
DX: I12.9 Hypertensive chronic kidney disease with stage 1 through stage 4 chronic kidney disease, or unspecified chronic kidney disease (principal); N18.30 Chronic kidney disease, stage 3 unspecified; R79.89 Other specified abnormal findings of blood chemistry
CPT/HCPCS: 76775

== ENCOUNTER → 2024-03-17 13:09 | Outpatient (BNVA) | payer OTHER, SELFPAY | PROVIDERS: PCP Family Medicine; Visit Provider Internal Medicine Hypertension Specialist ==

== ENCOUNTER 2024-03-18 13:11 | Outpatient (AMB) | payer OTHER, SELFPAY ==
[2024-03-18 13:12] VITALS: BP 112/74; PULSE 84; O2SAT 97; BMI 35.3
--- NOTE | 2024-03-18 13:12 | HO.NEPHOV_ITS ---
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 Serum creatinine was normal in 2022 About a year ago she had a renal ultrasonogram which was reported as hydronephrosis. She was referred to a sales and customer relations rep but her appointment was canceled by the sales and customer relations rep. She was seen by urology. Cystoscopy was done which was unremarkable and therefore she was discharged. It was unclear if the follow up ultrasound showed resolution of the hydronephrosis. History of hypertension she is on amlodipine 5 mg. Sometimes office readings have been elevated. The accuracy of her home blood pressure monitor seems questionable She has been on Wegovy There has been minimal weight loss of 8-10 lb History of fatigue. History of chronic constipation. This started even before starting amlodipine. However after starting Wegovy she has had episodes of diarrhea on and off. She has had colonoscopy few years ago which was unremarkable. History of hypothyroidism. She is on levothyroxine 50 mcg a recent TSH was 2.6. She is on a regular diet No history of alcohol abuse although she drinks up to 6 drinks during weekends. Also has h/o Harlequin Syndrome 02/1924. Overall doing well without any new complaints. 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 The kidney is normal in size, contour, and echogenicity. Renal cortical thickness is normal. There is a nonobstructing lower pole 0.2 x 0.1 cm calculus. No focal parenchymal lesions or hydronephrosis. LEFT KIDNEY: 13.8 x 4.9 x 4.3 cm (SAG x AP x TRV). The kidney is normal in size, contour, and echogenicity. Renal cortical thickness is normal. There is a nonobstructing lower pole 0.3 x 0.2 x 0.3 cm calculus. No focal parenchymal lesions or hydronephrosis. US/US renal BI IMPRESSION: There are bilateral nonobstructing renal calculi. No hydronephrosis. Nephrology Results: Hgb 14.2 g/dl (12.0-16.0) 02/08/24 WBC 7.9 X10*3/uL (4.8-10.8) 02/08/24 Plt Count 289 X10*3/uL (160-400) 02/08/24 Sodium 137 mmol/L (135-145) 02/08/24 Potassium 3.7 mmol/L (3.3-5.1) 02/08/24 Chloride 106 mmol/L (96-108) 02/08/24 Carbon Dioxide 26 mmol/L (22-29) 02/08/24 BUN 10 mg/dL (9-16) 02/08/24 Creatinine 0.68 mg/dL (0.5-1.4) 02/08/24 Calcium 9.0 mg/dL (8.4-10.2) 02/08/24 Urine Protein 30 (1+) mg/dL (Neg-Trace) H 02/08/24 Urine Creatinine 136.48 mg/dL 02/08/24 Renal US 02/13/24 Assessment & Plan Assessment & Plan (1) HTN (hypertension): Code(s): I10 - Essential (primary) hypertension Category: Medical Plan: Blood pressure needs to be better controlled. She will benefit from weight loss She should stay on low-sodium diet. 24 hour ambulatory blood pressure monitoring revealed normal blood pressures with nocturnal dipping (2) Elevated serum creatinine: Code(s): R79.89 - Other specified abnormal findings of blood chemistry Category: Medical Plan: The serum creatinine was normal back in 2022. The urine creatinine excretion appears to be normal based on recent studies. Repeat renal ultrasonogram and serum creatinine were normal There were 2 nonobstructing tiny calculi 1 on each kidney. Plan Urinalysis showed microhematuria. She will rule out UTI check urine for culture and repeat urinalysis. . Orders: Orders Urine Cytology Today R30.0 - Dysuria, R31.9 - Hematuria, unspecified UA and rflx microscopic Today R30.0 - Dysuria Urine Culture Today R30.0 - Dysuria Coding Level of Care Code Est Pt Level 4 (89911) Diagnoses HTN (hypertension) I10 Elevated serum creatinine R79.89
== END 2024-03-18 14:08 | disposition home or self-care (01) ==
PROVIDERS: PCP Family Medicine; Visit Provider Internal Medicine Hypertension Specialist
DX: I10 Essential (primary) hypertension (principal); R79.89 Other specified abnormal findings of blood chemistry
CPT/HCPCS: 93790; 99214

== ENCOUNTER → 2024-03-18 13:11 | Outpatient (BNVA) | payer OTHER, SELFPAY | PROVIDERS: PCP Family Medicine; Visit Provider Internal Medicine Hypertension Specialist | DX: I10 Essential (primary) hypertension (principal); R79.89 Other specified abnormal findings of blood chemistry | CPT/HCPCS: 93786; 99212 ==

== ENCOUNTER 2024-12-14 13:40 | Emergency (ER) | payer OTHER, SELFPAY ==
--- NOTE | 2024-12-14 13:43 | ECG_ITS ---
Test Reason : cp Blood Pressure : */* mmHG Vent. Rate : 76 BPM Atrial Rate : 76 BPM P-R Int : 132 ms QRS Dur : 92 ms QT Int : 376 ms P-R-T Axes : 43 -32 62 degrees QTcB Int : 423 ms Normal sinus rhythm Left axis deviation Nonspecific T wave abnormality Abnormal ECG When compared with ECG of 18-Nov-2019 17:30, No significant change was found Referred By: Ulisses Muñoz Electronically Signed By: DEB GODINEZ MD
[2024-12-14 14:13] VITALS: BP 143/86; PULSE 75; RESP 17; TEMP 36.3; O2SAT 99; BMI 27.6
--- NOTE | 2024-12-14 14:16 | ED.GENADULT ---
[facility] - General Adult General Chief complaint: Arrhythmia/Palpitations Stated complaint: Concern for hypokalemia Time Seen by Provider: 12/14/24 18:24 Source: patient Mode of arrival: ambulatory Limitations: no limitations History of Present Illness ED Provider: [facility] narrative: Patient reports history of hypokalemia, takes potassium supplements, in the past has been told that she feels palpitations or any cramping to come to the ER she did not speak to her PCP today, she is otherwise healthy no drug or alcohol use on regular basis, she is a social drinker only. Reports in the past 1 week has had more palpitations and wanted to come to the ER for re-evaluation. She is scheduled to have potassium levels checked tomorrow. Related Data Home Medications ?Medication ?Instructions ?Recorded ?Confirmed amlodipine 5 mg tablet 5 mg PO DAILY 02/08/24 03/18/24 semaglutide (weight loss) 2.4 mg subcut QWEEK 02/08/24 03/18/24 mg/0.75 mL subcutaneous pen injector (Wegovy) Previous Rx's ?Medication ?Instructions ?Recorded levothyroxine 62.5 mcg capsule 62.5 mcg PO DAILY #30 caps 02/08/24 Allergies Allergy/AdvReac Type Severity Reaction Status Date / Time cephalexin Allergy Unknown Rash Verified 12/14/24 14:14 Review of Systems Constitutional: Constitutional: Reports as per [facility] Social History Social History Household Members: Family Alcohol intake: current Alcohol intake frequency: a few times a week Patient Tobacco Use Status: Former Tobacco user Tobacco use type: Cigarette 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 ED Vital Signs: Vital Signs - 24 hr 12/14/24 14:13 Temperature 97.3 F Pulse Rate 75 Respiratory Rate 17 Blood Pressure 143/86 H Pulse Oximetry 99 Oxygen Delivery Method Room Air BMI result Body Mass Index 27.6 Const Other: Gen: ?Overall well-appearing patient HEENT: PERRLA, EOMI, MMM, Neck: Supple, no LAD CV: RRR, no obvious murmurs appreciated Resp: ?No wheezing rales rhonchi no stridor moving air well Abd: ?Bowel sounds are present, no tenderness no rebound no rigidity MSK: FROM, strength 5/5 all extremities Skin: Warm, dry, intact, Neuro: ?Alert and oriented x3, moving upper and lower extremities symmetrically, no obvious facial asymmetry noted Course Course Course Narrative: Medical screening exam performed. Please refer to detailed history, exam, evaluation, and management by primary provider. Recent hypokalemia, has been taking supplements. Started feeling unwell, weak and palpitations. Supposed to have labs rechecked tomorrow but due to symptoms came to the ED. heart rate is 70s and sinus. Lung sounds clear. Check labs. JS Medical Decision Making Medical Decision Making MDM Narrative: Overall well-appearing patient with no EKG changes to suspect underlying ACS, no electrolyte derangements, reassured by physical examination, PERC negative see my differential as below Differential Diagnosis Differential Diagnoses: The differential diagnosis associated with the presentation includes (Hypokalemia, hypomagnesemia, dehydration, hypothyroidism, ACS, PE) Admission/Observation 2022 Emergency Medicine Coding Guide from [employer] on 12/14/2024 All calculations should be rechecked by clinician prior to use RESULT SUMMARY: 4 Estimated Level of Service Problems: Moderate (4) Risk: Moderate (4) Data: Extensive (5) NARRATIVE MDM: This patient's problem complexity is Moderate as patient: has a new undiagnosed problem with uncertain prognosis but that could be serious. This patient's risk is Moderate due to: overall presentation requiring evaluation for a potentially Moderate-risk process. This patient's data complexity is Extensive due to: -multiple tests ordered -independent interpretation of imaging or EKG INPUTS: Number and Complexity ?> 5 = 4: undiagnosed new problem, uncertain outcome (e) Risk level ?> 3 = Moderate Tests ordered ?> 3 = >= Tests results reviewed (excluding labs) ?> 1 = 1 Prior external notes reviewed ?> 0 = 0 Assessment requiring and independent historian ?> 0 = No Independent interpretation of tests ?> 1 = Yes Discussed management/test interpretation w/external professional ?> 0 = No Lab Data MDM Lab Attestation statement: I reviewed the patient's lab results. 12/14/24 15:26 12/14/24 15:26 Labs: Lab Results 12/14/24 Range/Units 15:26 WBC 4.9 (4.8-10.8) X10*3/uL RBC 4.52 (4.20-5.50) X10*6/uL Hgb 13.6 (12.0-16.0) g/dl Hct 39.4 (37.0-47.0) % MCV 87.2 (80.0-98.0) fL MCH 30.1 (27.0-33.0) pg MCHC 34.5 (31.0-35.0) g/dl RDW 11.5 (11.0-16.0) % Plt Count 244 (160-400) X10*3/uL MPV 9.0 L (9.4-12.3) fL Immature Gran % (Auto) 0.2 (0.0-0.4) % Neut % (Auto) 55.8 (45-73) % Lymph % (Auto) 32.4 (20-40) % [place] % (Auto) 8.6 (2-11) % Eos % (Auto) 1.6 (0-4) % Baso % (Auto) 1.4 (0-2) % Lymph # (Auto) 1.6 (1.2-4.9) X10*3/uL [place] # (Auto) 0.4 (0.1-1.2) X10*3/uL Eos # (Auto) 0.1 (0.0-0.4) X10*3/uL Baso # (Auto) 0.1 (0.0-0.2) X10*3/uL Abs Immat Gran (auto) 0.01 (0.00-0.03) X10*3/uL Absolute Neuts (auto) 2.7 (2.0-8.3) x10*3/uL Absolute Nucleated RBC 0.000 (0.0-0.012) X10*3/uL Nucleated RBC % (auto) 0.0 (0.0-0.2) /100WBC Sodium 140 (135-145) mmol/L Potassium 3.6 (3.3-5.1) mmol/L Chloride 106 (96-108) mmol/L Carbon Dioxide 26 (22-29) mmol/L Anion Gap 12 (12-20) BUN 8 L (9-16) mg/dL Creatinine 0.64 (0.5-1.4) mg/dL Estim Creat Clear Calc 113.1 Estimated GFR > 60 Random Glucose 76 (60-115) mg/dL Calcium 9.2 (8.4-10.2) mg/dL Magnesium 2.1 (1.6-2.6) mg/dL Total Bilirubin 0.5 (0.0-1.0) mg/dL AST 21 (5-31) U/L ALT 22 (0-31) U/L Alkaline Phosphatase 56 (39-117) U/L Troponin I High Sens < 2.7 (<3.5-17.0) ng/L Total Protein 6.8 (6.5-8.0) g/dL Albumin 4.7 (3.5-5.0) g/dL TSH 1.22 (0.32-4.0) uIU/mL Beta HCG, Quant 3 mIU/mL Independent Interpretation I performed an independent interpretation of an: EKG (76 beats per minute otherwise normal ECG without dysrhythmia, AV brigida blocks or ST-T changes to suspect underlying ACS, my independent interpretation) Discharge Plan Discharge Clinical Impression: Heart palpitations Patient Disposition: Home, Self-Care Additional Instructions: As discussed I am reassured by your vital signs, workup, physical exam, please continue using a supplements and eating potassium rich foods, any other issues or concerns come back to the ER otherwise follow up with the PCP. Prescriptions: No Action amlodipine 5 mg tablet 5 mg PO DAILY Wegovy 2.4 mg/0.75 mL pen injector subcut QWEEK levothyroxine 62.5 mcg capsule 62.5 mcg PO DAILY Qty: 30 1RF Print Language: French
[2024-12-14 15:32] LABS: MANUAL DIFF FLAG NO
[2024-12-14 15:34] LABS: Hematocrit 39.4 % (37.0-47.0); Hemoglobin 13.6 g/dl (12.0-16.0); Imm Gran Abs Auto 0.01 X10*3/uL (0.00-0.03); Imm Gran Pct Auto 0.2 % (0.0-0.4); Lymphocytes Absolute Auto 1.6 X10*3/uL (1.2-4.9); Mean Corpuscular HGB Conc 34.5 g/dl (31.0-35.0); Mean Corpuscular Hemoglobin 30.1 pg (27.0-33.0); Mean Corpuscular Volume 87.2 fL (80.0-98.0); NRBC Abs Auto 0.000 X10*3/uL (0.0-0.012); NRBC Pct Auto 0.0 /100WBC (0.0-0.2); Platelet Count 244 X10*3/uL (160-400); Red Blood Count 4.52 X10*6/uL (4.20-5.50); White Blood Count 4.9 X10*3/uL (4.8-10.8)
[2024-12-14 16:03] LABS: Alanine Aminotransferase 22 U/L (0-31); Albumin Level 4.7 g/dL (3.5-5.0); Alkaline Phosphatase 56 U/L (39-117); Anion Gap 12 (12-20); Aspartate Amino Transferase 21 U/L (5-31); Blood Urea Nitrogen 8 mg/dL (9-16); Calcium 9.2 mg/dL (8.4-10.2); Carbon Dioxide 26 mmol/L (22-29); Chloride 106 mmol/L (96-108); Creatinine Clr Calc Pharmacy 113.1; Estimated Glomerular Filt Rate > 60; Magnesium 2.1 mg/dL (1.6-2.6); Potassium 3.6 mmol/L (3.3-5.1); Sodium 140 mmol/L (135-145); Total Protein 6.8 g/dL (6.5-8.0); Troponin-I High Sensitivity < 2.7 ng/L (<3.5-17.0)
[2024-12-14 18:45] VITALS: BP 116/76; PULSE 64; RESP 13; TEMP 36.8; O2SAT 98
[2024-12-14 18:57] VITALS: BP 116/76; PULSE 64; RESP 13; TEMP 36.8; O2SAT 98
== END 2024-12-14 18:59 | disposition home or self-care (01) ==
PROVIDERS: Physician Assistant; Emergency Provider Emergency Medicine; PCP Family Medicine
DX: R00.2 Palpitations (principal); R07.9 Chest pain, unspecified
CPT/HCPCS: 36415; 80053; 83735; 84443; 84484; 84702; 85025; 93005; 99283; 99284

== ENCOUNTER → 2024-12-14 13:43 | Outpatient (BNV) | payer OTHER, SELFPAY | PROVIDERS: Emergency Provider Emergency Medicine; PCP Family Medicine; Visit Provider Internal Medicine Cardiovascular Disease | DX: R94.31 Abnormal electrocardiogram [ECG] [EKG] (principal); R07.9 Chest pain, unspecified | CPT/HCPCS: 93010 ==